=== PATIENT | male | born 1990 | race Caucasian/White ===

== ENCOUNTER 2016-10-14 13:02 | Inpatient (IN) | payer BC, OTHER ==
[~2016-10-14] VITALS: Ht 195.6 cm; Wt 23.5 kg
[2016-10-14] MEDS ORDERED: SODIUM CHLORIDE 0.9% 1,000 ML IV ONE (13:18)
[2016-10-14] MEDS ORDERED: ONDANSETRON 2MG/ML, 2ML ONE ×2 (13:24→19:38)
[2016-10-14] MEDS ORDERED: LIDOCAINE 1%, 20ML ONE (13:24)
[2016-10-14] MEDS ORDERED: MORPHINE SULFATE 4 MG/ML, 1ML ONE ×2 (13:24→14:43)
[2016-10-14] MEDS ORDERED: DIPH,PERTUSS(ACELL),TET VAC/PF 0.5 ML IM-VACC ONE ×2 (13:25→13:30)
[2016-10-14] MEDS ORDERED: LIDOCAINE 1%, 20ML SQ ONE (13:30)
[2016-10-14] MEDS ORDERED: ONDANSETRON 2MG/ML, 2ML IVPush ONE (13:30)
[2016-10-14] MEDS: MORPHINE SULFATE 4 MG/ML, 1ML IV PRN ×2 (13:31→14:54)
[2016-10-14] MEDS ORDERED: POTASSIUM CHLORIDE 20 MEQ in SODIUM CHLORIDE 0.9% 1,000 ML IV ONE (15:13)
[2016-10-14] MEDS ORDERED: CEFTRIAXONE PMX 1GM/50ML 50 ML ONE (15:19)
[2016-10-14] MEDS ORDERED: CEFTRIAXONE 1,000 MG IV ONE (15:30)
[2016-10-14] MEDS ORDERED: ONDANSETRON 2MG/ML, 2ML IVPush PRN (15:30)
[2016-10-14] MEDS ORDERED: MORPHINE SULFATE 4 MG/ML, 1ML IVPush PRN (15:30)
[2016-10-14 17:00] VITALS: BP 126/82
[2016-10-14 18:18] VITALS: BP 126/82
[2016-10-14] MEDS ORDERED: FENTANYL PF 250 MCG/5ML ONE (19:03)
[2016-10-14] MEDS ORDERED: MIDAZOLAM 1 MG/ML, 2ML ONE (19:04)
[2016-10-14] MEDS ORDERED: DEXAMETHASONE 4 MG/ML, 1ML ONE (19:38)
[2016-10-14] MEDS ORDERED: ROCURONIUM 10 MG/ML ONE (19:38)
[2016-10-14] MEDS ORDERED: PROPOFOL 10 MG/ML, 20ML ONE (19:38)
[2016-10-14] MEDS ORDERED: SUCCINYLCHOLINE 20 MG/ML, 10ML ONE (19:38)
[2016-10-14] MEDS ORDERED: CEFAZOLIN 1,000 MG ONE (19:38)
[2016-10-14] MEDS ORDERED: BUPIVACAINE/PF 0.5% ONE (19:50)
[2016-10-14] MEDS ORDERED: HEPARIN 1,000 UNITS/ML, 30ML ONE (21:09)
[2016-10-14] MEDS ORDERED: HEPARIN 1,000 UNITS/ML, 30ML IVPush ONE (21:22)
[2016-10-14] MEDS ORDERED: BACITRACIN OINT 500U/GM, 15 GM ONE (23:01)
[2016-10-14] MEDS ORDERED: ASPIRIN 325 MG TABLET PO ONE (23:30)
[2016-10-15] MEDS ORDERED: OXYC-302 PO (00:02)
[2016-10-15] MEDS ORDERED: ONDA4TAB7 PO (00:03)
[2016-10-15] MEDS ORDERED: CEPH-368 PO (00:04)
[2016-10-15 00:15] VITALS: BP 131/67
[2016-10-15] MEDS ORDERED: ONDANSETRON 2MG/ML, 2ML IV PRN (00:30)
[2016-10-15] MEDS ORDERED: MORPHINE SULFATE 4 MG/ML, 1ML IV PRN (00:30)
[2016-10-15] MEDS ORDERED: OXYcodone/APAP 5/325MG TABLET PO PRN (00:30)
[2016-10-15 05:55] VITALS: BP 128/85
== END 2016-10-15 06:00 | disposition home or self-care (01) | DRG 514 ==
LOC: ED 15:12 → EDIP 15:13 → ED 15:22 → 4NOR 16:19
PROVIDERS: ADMIT Plastic Surgery; ATTEND Plastic Surgery
PROC: 01Q60ZZ Repair Radial Nerve, Open Approach (ICD-10-PCS; 2016-10-14)
PROC: 01Q40ZZ Repair Ulnar Nerve, Open Approach (ICD-10-PCS; 2016-10-14)
PROC: 03BA0ZZ Excision of Left Ulnar Artery, Open Approach (ICD-10-PCS; 2016-10-14)
PROC: 3E0T3BZ Introduction of Anesthetic Agent into Peripheral Nerves and Plexi, Percutaneous Approach (ICD-10-PCS; 2016-10-14)
PROC: 0HQGXZZ Repair Left Hand Skin, External Approach (ICD-10-PCS; 2016-10-14)
PROC: 0LQ80ZZ Repair Left Hand Tendon, Open Approach (ICD-10-PCS; principal; 2016-10-14 20:00)
DX: S66.123A Laceration of flexor muscle, fascia and tendon of left middle finger at wrist and hand level, initial encounter (principal); S66.125A Laceration of flexor muscle, fascia and tendon of left ring finger at wrist and hand level, initial encounter; S66.127A Laceration of flexor muscle, fascia and tendon of left little finger at wrist and hand level, initial encounter; X58.XXXA Exposure to other specified factors, initial encounter; W25.XXXA Contact with sharp glass, initial encounter; Y93.89 Activity, other specified; Y92.098 Other place in other non-institutional residence as the place of occurrence of the external cause; Y99.8 Other external cause status; Z23 Encounter for immunization
CPT/HCPCS: 82962; 90471; 90715; 96365; 96375; 96376; J0690; J0696; J1100; J1644; J2250; J2405; J2704; J3010; J3490; J0330; J7030

== ENCOUNTER 2020-06-10 21:23 | Emergency (ER) | payer OTHER ==
[~2020-06-10] VITALS: Ht 195.6 cm; Wt 107.0 kg
[~2020-06-10 21:23] MED LIST: CEPH-368 PO; ONDA4TAB7 PO; OXYC1TAB14 PO
[2020-06-10] MEDS ORDERED: SODIUM CHLORIDE 0.9% 1,000ML IVBOLUS ONE (21:30)
[2020-06-10] MEDS ORDERED: NALOXONE 1 MG/ML, 2ML ONE (21:34)
[2020-06-10 21:50] LABS: BASOPHILS % (AUTO) 0 % (0-1); EOSINOPHILS % (AUTO) 0 % (1-7); LYMPHOCYTES % (AUTO) 23 % (22-44); MEAN CORPUSCULAR HEMOGLOBIN 32.6 pg (27.5-34.5); MEAN CORPUSCULAR HGB CONC 34.2 g/dL (33.2-36.2); MEAN PLATELET VOLUME 7.6 fL (7.4-10.4); MONOCYTES % (AUTO) 4 % (2-9); NEUTROPHILS % (AUTO) 73 % (42-75); PLATELET COUNT 301 x10^3/uL (130-400); RED BLOOD COUNT 5.32 x10^6/uL (4.38-5.82); RED CELL DISTRIBUTION WIDTH 13.4 % (9.4-14.8)
[2020-06-10 21:51] LABS: MD NO
--- NOTE | 2020-06-10 21:51 | NUR ---
Pt BIBA after pt had a welfare check and pt was found unresponsive and apenic. Pt was given Narcan and by the time pt arrived he was breathing on his own and awake. Pt admits to snorting percocets today with no intention of harming himself. Pt also admits to drinking ETOH today. Pt to ER A&O, non-labored breathing, MOA. Labs and cxr completed. Pt remains with HR in 150-170. Physican aware and at bedside.
[2020-06-10] MEDS ORDERED: DILTIAZEM 5 MG/ML, 5ML ONE (22:00)
[2020-06-10] MEDS ORDERED: DILTIAZEM 5 MG/ML, 5ML IVPush ONE (22:00)
[2020-06-10 22:02] LABS: ANION GAP 10 mmol/L (5-15); CALCIUM 8.7 mg/dL (8.5-10.1); CHLORIDE 105 mmol/L (98-107); SALICYLATE LEVEL 2.3 mg/dL (2.8-20.0)
[2020-06-10 22:04] LABS: ALANINE AMINOTRANSFERASE 81 U/L (12-78); ALKALINE PHOSPHATASE 84 U/L (45-117); BILIRUBIN,TOTAL 0.3 mg/dL (0.2-1.0); CREATININE 1.68 mg/dL (0.7-1.3); TOTAL PROTEIN 9.3 g/dL (6.4-8.2)
--- NOTE | 2020-06-10 22:06 | NUR ---
25mg Diltiazam ordered, 5mg was given, and HR dropped to 90-110's, Dr Tenorio aware and VO to hold rest of diltiazam for now. Pt remains in a-fib. BP remains stable. Pt remains A&O, with non-labored breathing. Family at bedside. Will monitor.
--- NOTE | 2020-06-10 22:22 | NUR ---
Pt remains A&O, MOA, non-labored breathing. HR 120-140, Dr Tenorio aware, BP stable. No new orders. Will continue to monitor. Family at bedside. 2nd L NS infusing
[2020-06-10] MEDS ORDERED: ONDANSETRON 2MG/ML, 2ML ONE (22:51)
--- NOTE | 2020-06-10 23:30 | NUR ---
Pt HR remains in 110's, BP remains stable. Pt remains Awake, A&O. Pt with no respiratory issues. Family remains at bedside. Pt with no changes. Will continue to monitor closely.
[2020-06-10 23:48] LABS: AMPHETAMINE SCREEN, URINE Negative (Negative); BARBITURATE SCREEN, URINE Negative (Negative); BENZODIAZEPINE SCREEN, URINE Negative (Negative); CANNABINOID SCREEN, URINE Positive (Negative); COCAINE SCREEN, URINE Negative (Negative); METHADONE SCREEN, URINE Negative (Negative); OPIATE SCREEN, URINE Negative (Negative)
--- NOTE | 2020-06-11 00:33 | NUR ---
RN IN ROOM AT FAMILY MEMBER REQUEST, PT VOMITED X1 AND REPORTS FEELING BETTER, ASKING TO DC TO HOME. PT AND FAMILY VERBALIZE FEELING COMFORTABLE WITH DISCHARGE, THIS RN OUT TO SPEAK WITH ER MD. MD STATES IF PT CAN MAINTAIN GOOD SPO2 ON ROOM AIR THEN HE IS FREE TO GO. PT AND FAMILY VERBALIZE UNDERSTANDING AND AGREEMENT WITH PLAN OF CARE. PT IN BED WITH NO SIGNS OR SYMPTOMS OF ACUTE DISTRESS NOTED RESPIRATIONS EVEN AND UNLABORED, PT DENIES PAIN OR DISCOMFORT AT THIS TIME
[2020-06-11 00:45] VITALS: BP 117/78
== END 2020-06-11 00:49 | disposition home or self-care (01) ==
LOC: ED 06-11 00:20
DX: T51.91XA Toxic effect of unspecified alcohol, accidental (unintentional), initial encounter (principal); T40.601A Poisoning by unspecified narcotics, accidental (unintentional), initial encounter; T40.5X1A Poisoning by cocaine, accidental (unintentional), initial encounter; I48.91 Unspecified atrial fibrillation; R00.9 Unspecified abnormalities of heart beat; F17.210 Nicotine dependence, cigarettes, uncomplicated; Y92.89 Other specified places as the place of occurrence of the external cause
CPT/HCPCS: 36415; 71045; 80053; 80143; 80179; 80307; 80320; 85025; 93005; 96374; 99291; 99406; G0480